=== PATIENT | male | born 1960 | race Caucasian/White ===

== ENCOUNTER 2022-03-10 09:47 | Outpatient (REF) | payer MEDICAID, SELFPAY ==
--- NOTE | ~2022-03-10 | XR_ITS ---
EXAMINATION: XR HAND, RIGHT CLINICAL INFORMATION: Trauma, pain COMPARISON: None TECHNIQUE: Right hand is imaged in 4 views. FINDINGS: There is amputation mid to distal aspect index finger distal phalanx involving the shaft and tuft along with reduction of the overlying soft tissues. Scattered small fragments of bone reside in the distal soft tissues. The base of the distal phalanx and the articular surface appears intact. No periostitis or destructive process. No subluxation or dislocation. The remainder the bony structures are unremarkable. XR/XR hand RT min 3V IMPRESSION: 1. Amputation mid to distal aspect index finger distal phalanx. 2. No dislocation or destructive process.
== END 2022-03-10 09:48 | disposition home or self-care (01) ==
LOC: HO.HOSX 09:47
PROVIDERS: Visit Provider Physician Assistant
DX: S68.110A Complete traumatic metacarpophalangeal amputation of right index finger, initial encounter (principal)
CPT/HCPCS: 73130; 99202

== ENCOUNTER 2022-03-12 06:49 | Day surgery (SDC) | payer OTHER, SELFPAY ==
--- NOTE | 2022-03-11 12:52 | P.CONAN_ITS ---
Documented by User: Merly Motta NP 03/11/22 12:52 HPI - Anesthesia Eval Consult details Narrative: 61yo M for Right Index finger Amputation Revision [facility] Active Problems Active Problems: All Active Problems (Updated 03/10/22 @ 10:52 by Isabella Prater) Traumatic amputation of right index finger (Acute) Past Medical History Medical History High blood pressure High cholesterol Liver problem Social History Social History Patient Tobacco Use Status: Never used Tobacco Are you DNR?: No Advance Directives: No Advance Directives Information Provided: Yes Nutrition Risks: No Nutritional Risk Current occupational status: retired Current occupation: rt hand Meds Allergies Allergy/AdvReac Type Severity Reaction Status Date / Time No Known Allergies Allergy Verified 03/12/22 07:15 [No Known Allergies*] Active Medications: Current Medications Lidocaine HCl 8.11 ml/Epinephrine 0.08 mg/ Sodium Bicarbonate 0.405 meq/ IV Miscellaneous Supplies 9 mls @ 0 mls/hr INFILTRATI ONCE ONE Stop: 03/11/22 10:51 Home Medications Medication Instructions Recorded Confirmed Last Taken Type entecavir 0.5 mg tablet 0.5 mg PO DAILY 03/10/22 Unknown History Exam Exam Date and Time: March 11, 2022 1252 Assessment and Plan Assessment Anesthesia Assessment: Chart Reviewed Documented by User: Ross Avalos MD 03/12/22 08:56 [facility] Past Medical History Medical History High blood pressure High cholesterol Liver problem Family History Family history of problems with anesthesia: No Surgical History History of Problems with Anesthesia: No Social History Social History Patient Tobacco Use Status: Never used Tobacco Are you DNR?: No Advance Directives: No Advance Directives Information Provided: Yes Nutrition Risks: No Nutritional Risk Current occupational status: retired Current occupation: rt hand Meds Allergies Allergy/AdvReac Type Severity Reaction Status Date / Time No Known Allergies Allergy Verified 03/12/22 07:15 [No Known Allergies*] Home Medications Medication Instructions Recorded Confirmed Last Taken Type entecavir 0.5 mg tablet 0.5 mg PO DAILY 03/10/22 Unknown History Exam Airway Mallampati Class: II TM Dist: >3cm Neck ROM: Full Partial: Upper Loose/Missing/Broken Teeth: Yes (poor dentition many teeth missing globally) Heart: rrr+[id number] Lungs: cta b/l Assessment and Plan Assessment Anesthesia Assessment: Anesthesia Plan Discussed Final Anesthetic Review Family History of Problems with Anesthesia: No History of Problems with Anesthesia: No NPO: Yes ASA Class: III Final Preanesthetic Review: No Changes in Pt Med Stat, Meds/Allgs Chart Reviewed, Consent Obtained/Reviewed and Anes Risks/Benef Reviewed Patient Risk: Intermediate Procedure Risk: Intermediate Assessment/Block/Sedation in SS: Assess/Block/Sedation-SS Anesthetic Plan Anesthetic Plan: GA and Agree w/ Assess. and Plan Disposition: Standard PACU
[2022-03-12 07:08] VITALS: BMI 24.5
[2022-03-12] MEDS: Lactated Ringers 1,000 ML 100 ML IVCONT (07:17)
[2022-03-12 07:31] VITALS: BP 163/95; PULSE 61; RESP 18; TEMP 36.4; O2SAT 97
--- NOTE | 2022-03-12 07:57 | PC.NURSE ---
patient understands and speaks frisian fairly well. [employer] machine used for clarification. Dr. Avalos aware and present when spoke to daughter, Ely, over speakerphone that patient stopped Lisinopril on his own and she stated that she will update his pcp.
--- NOTE | 2022-03-12 09:11 | P.HPSUR_ITS ---
Pre-Procedural Eval Section A Date of Service: 03/12/22 The patient is an INPATIENT: No Changes since office visit: No Cold of Flu in the past 2 weeks, No New Medical Problems, No Changes in Medication and No Patient answered all questions The History & Physical has been completed within 30 days and I have reviewed it.: Yes Section B Chief Complaint: Right index finger amputation Allergies: Allergies Allergy/AdvReac Type Severity Reaction Status Date / Time No Known Allergies Allergy Verified 03/12/22 07:15 [No Known Allergies*] Exam Exam Comment: He has a foul odor beneath his bandage. Plan Assessment and plan: 1. Right index finger tip amputation with open fracture I educated the patient and his daughter who acted as a [place] hourly sign language interpreter. I explained that we will evaluate the wound once we get to the OR. If I think he has a significant infection I explained is possible that we may proceed with an I&D today but only closed the wound loosely and plan to come back next week for repeat I and D and possible closure. It looks like he has been on Augmentin since at least Wednesday, and he and his daughter say that he has been taking this medication. I also explained to daughter and patient that he will be going home with oral antibiotics as well. The risks and benefits of operative treatment were discussed with the patient and the patient wishes to proceed with surgery. These risks include, but are not limited to risk of damage to blood vessels, nerves, tendons, infection, recurrence, incomplete relief of preoperative symptoms, persistent pain, possible need for further surgery and the risks associated with regional blocks and anesthesia. The plan is to take the patient to the operating room today for the following procedures: 1. Right index finger revision amputation and I and D of open fracture is indicated 2. [ ] All of the preoperative paperwork including the consent was filled out today. All the patient's questions were answered. The patient understands that they will be contacted by our museum service scheduler soon to schedule this procedure I have reviewed the history and physical and performed a pertinent physical examination on my patient. No changes have occurred unless specified.
--- NOTE | 2022-03-12 09:15 | P.OP_ITS ---
Operative Note Operative Note Date of Service: 03/12/22 Narrative: Operative Note Narrative: Preop diagnosis: 1. Right index finger tip Amputation with open distal phalanx fracture and injury to the nail bed Postop diagnosis: Same Procedure: 1. Right index finger distal phalanx I and D of open fracture and dirty wound 2. Right index finger Excision of germinal and sterile nail matrices Surgeon: Machelle Escalona MD Anesthesia: General Anesthesia Findings: The bandage in wound had a foul odor. There were numerous pieces of grass found imbedded in the wound. No gross purulence. Also the skin from just distal to the PIP joint was white and had the appearance of having been wet for a long period of time. However, this made it difficult to assess for vascularity. The deeper tissues in the wounds were a dark pink color, though there was only very little bleeding even after debridement of the distal phalanx. Implants: None Tourniquet time: 22 minutes EBL: 5.0 ml Specimen: Cultures taken from wound bed and at the bone Drains: None Complications: None Disposition: Brought to the recovery room in stable condition Plan: The patient received a 14 day supply of Augmentin on 03/10/2022. I spoke with his daughter who acted as an sewing machine operator paper bags for her father. I encouraged them to have him continue his oral antibiotics. Check cultures. Return to the operating room in 4 days for repeat I and D, evaluation of the vascularity of the digit, and possible revision amputation if we feel that we can close the wound at that time. Indications: The patient is 61 years old with a right index finger tip amputation an open fracture sustained while using a lawnmower . The risks and benefits of operative treatment, including but not limited to risk of damage to blood vessels, nerves, tendons, infection, recurrence, persistent pain or n umbness, incomplete resolution of preoperative symptoms, or need for further surgery were discussed with the patient and they wished to proceed with surgery. Procedure: Once consent was obtained patient was brought back to the operating suite and placed in the operating table in a supine position. . Perioperative antibiotics and anesthesia was administered by the anesthesia team. A tourniquet was applied to the proximal aspect of the right upper extremity and the limb was prepped and draped in a standard surgical fashion. The limb was elevated exsanguinated with an Esmarch bandage in the tourniquet inflated to 250 mmHg for a total tourniquet time of 22 minutes. The right index finger amputation site was 1st debrided of nonviable tissue. The wound had a foul odor, and numerous pieces of grass found in the wound bed. No gross purulence. The skin distal to the PIP joint was white, and had the appearance of having been wet in the dressing for a long period of time. Cultures were taken from the wound bed down to the bone. There were several bony fragments within the wound as well. The gross debris and bony fragments were removed from the wound. The wound was debrided of devitalized tissue using a 15. Blade and some tenotomy scissors. The end of the bone was debrided using a rongeur or and the curette where necessary. The end of the bone was remove the sharp edges as possible using a small rongeur. The wound was then copiously irrigated with normal saline. Our attention was turned to the nail bed. Because of the severity of this injury it was felt that the nail apparatus to would be best removed. The sterile and germinal matrices were carefully excised using a 15. Blade and then a rongeur. The wound was again copiously irrigated with normal saline. At this point the tourniquet was deflated and hemostasis obtained with a brief period of local pressure.. The wound was copiously irrigated with normal saline. Because of the gross debris within the wound, and the foul odor at the beginning of the case, I felt that it is best to treat this wound with oral antibiotics and a loose closure to facilitate any drainage at this time. Repeat I and D and possibly formal revision of his amputation should wait until next week. The skin edges were loosely reapproximated with two 4-0 Prolene sutures. a digital block was performed using some 0.5% plain ropivacaine for postop pain control and a sterile dressing was applied. The patient appears to have tolerated the procedure well and with no complications. Again the skin distal to the PIP joint was white and had the appearance of skin that had been wet for a prolonged time in its bandage. It did not really pinked up well after the tourniquet was deflated. The vascularity of this aspect of the digit will also be re-evaluated when he is taken to the OR next week.
[2022-03-12 10:32] VITALS: BP 157/87; PULSE 54; RESP 16; TEMP 36.6; O2SAT 98
[2022-03-12 10:37] VITALS: BP 159/92; PULSE 56; RESP 16; O2SAT 98
[2022-03-12 10:42] VITALS: BP 163/95; PULSE 68; RESP 18; O2SAT 98
[2022-03-12 10:47] VITALS: BP 149/86; PULSE 64; RESP 18; O2SAT 95
[2022-03-12 11:02] VITALS: BP 156/79; PULSE 65; RESP 18; TEMP 37; O2SAT 95
== END 2022-03-12 12:10 | disposition home or self-care (01) ==
PROVIDERS: Visit Provider Orthopaedic Surgery
PROC: (CPT 11012; principal; 2022-03-12 09:05)
DX: S62.630B Displaced fracture of distal phalanx of right index finger, initial encounter for open fracture (principal); W28.XXXA Contact with powered lawn mower, initial encounter; Y93.H3 Activity, building and construction; Y92.9 Unspecified place or not applicable; Y99.8 Other external cause status; I10 Essential (primary) hypertension; K76.9 Liver disease, unspecified; E78.5 Hyperlipidemia, unspecified; Z79.899 Other long term (current) drug therapy
CPT/HCPCS: 11012; 11750; 87070; 87073; 87077; 87186; 87205; J0690; J1100; J1170; J2250; J2405; J2795

== ENCOUNTER 2022-03-16 10:27 | Day surgery (SDC) | payer OTHER, SELFPAY ==
--- NOTE | 2022-03-13 09:26 | HO.ANESPROP2 ---
Documented by User: Merly Motta NP 03/13/22 09:27 HPI - Anesthesia Eval Consult details Narrative: 61yo M for Right I&D Index finger,Finger Amputation Revision s/p same 03/12/22 with GA-LMA 5 [facility] Active Problems Active Problems: All Active Problems (Updated 03/10/22 @ 10:52 by Isabella Prater) Traumatic amputation of right index finger (Acute) Past Medical History Medical History High blood pressure High cholesterol Liver problem Family History Family history of problems with anesthesia: No Surgical History History of Problems with Anesthesia: No Social History Social History Patient Tobacco Use Status: Never used Tobacco Current occupational status: retired Current occupation: rt hand Meds Allergies Allergy/AdvReac Type Severity Reaction Status Date / Time No Known Allergies Allergy Verified 03/12/22 07:15 [No Known Allergies*] Home Medications Medication Instructions Recorded Confirmed Last Taken Type entecavir 0.5 mg tablet 0.5 mg PO DAILY 03/10/22 03/12/22 Unknown History Exam Exam Date and Time: March 13, 2022 0926 Assessment and Plan Assessment Anesthesia Assessment: Chart Reviewed Final Anesthetic Review Family History of Problems with Anesthesia: No History of Problems with Anesthesia: No Documented by User: Roosevelt Domínguez MD 03/16/22 17:54 [facility] Past Medical History Medical History High blood pressure High cholesterol Liver problem Social History Social History Patient Tobacco Use Status: Never used Tobacco Current occupational status: retired Current occupation: rt hand Meds Allergies Allergy/AdvReac Type Severity Reaction Status Date / Time No Known Allergies Allergy Verified 03/12/22 07:15 [No Known Allergies*] Home Medications Medication Instructions Recorded Confirmed Last Taken Type entecavir 0.5 mg tablet 0.5 mg PO DAILY 03/10/22 03/12/22 Unknown History Exam Airway Mallampati Class: IV Neck ROM: Full Partial: Upper Loose/Missing/Broken Teeth: Yes (Multiple chipped , poor overall dentition ) Heart: S1,S2 Lungs: b/l breath sounds Assessment and Plan Assessment Anesthesia Assessment: Anesthesia Plan Discussed Final Anesthetic Review NPO: Yes ASA Class: III and Emergency Final Preanesthetic Review: Meds/Allgs Chart Reviewed, Consent Obtained/Reviewed and Anes Risks/Benef Reviewed Patient Risk: Intermediate Procedure Risk: Intermediate Anesthetic Plan Anesthetic Plan: GA Disposition: Standard PACU
[2022-03-16] VITALS (7 sets, daily range): BP systolic 144–179; BP diastolic 85–105; PULSE 57–81; RESP 16–18; TEMP 36.2–36.7; O2SAT 98–100; BMI 26.9
--- NOTE | 2022-03-16 11:26 | MHC.SHP ---
Pre-Procedural Eval Section A Date of Service: 03/16/22 The patient is an INPATIENT: No Changes since office visit: No Cold of Flu in the past 2 weeks, No New Medical Problems, No Changes in Medication and No Patient answered all questions The History & Physical has been completed within 30 days and I have reviewed it.: Yes Section B Chief Complaint: right index finger traumatic amputation Allergies: Allergies Allergy/AdvReac Type Severity Reaction Status Date / Time No Known Allergies Allergy Verified 03/12/22 07:15 [No Known Allergies*] Plan I have reviewed the history and physical and performed a pertinent physical examination on my patient. No changes have occurred unless specified.
--- NOTE | 2022-03-16 11:28 | W.PM.OPN ---
Operative Note Operative Note Date of Service: 03/16/22 Narrative: Operative Note Narrative: Preop diagnosis: 1. Right index finger distal phalanx level Amputation 2. Right index finger open contaminated wound down to distal phalanx bone Postop diagnosis: Same Procedure: 1. right index finger Revision amputation 2. Right index finger I and D of open fracture Surgeon: Machelle Escalona MD Anesthesia: General Anesthesia Findings: Skin condition improved, not wet, good cap refill. Wound with mild odor, no gross purulence Implants: None Tourniquet time: 0 minutes EBL: 5.0 ml Specimen: None Drains: None Complications: None Disposition: Brought to the recovery room in stable condition Plan: Follow-up in 1 week for wound check Check cultures Anticipate suture removal in 3 weeks Continue antibiotics until finished Indications: The patient is 61 years old with a right index finger tip amputation status post I and D 4 days ago. At that time there was gross contamination with grass and significant odor. . The risks and benefits of operative treatment, including but not limited to risk of damage to blood vessels, nerves, tendons, infection, recurrence, persistent pain or numbness, incomplete resolution of preoperative symptoms, or need for further surgery were discussed with the patient and they wished to proceed with surgery. Procedure: Once consent was obtained patient was brought back to the operating suite and placed in the operating table in a supine position. . Perioperative antibiotics and anesthesia was administered by the anesthesia team. A tourniquet was applied to the proximal aspect of the right upper extremity and the limb was prepped and draped in a standard surgical fashion. The tourniquet was not inflated during this case. The skin condition was significantly improved. It was not wet and cap refill was good. There is still a mild odor, but no gross purulence. The amputation site was debrided of nonviable tissue. The end of the bone was debrided using a curette where necessary. The ends of the digital nerves were shortened as indicated. The wound, including the end of the distal phalanx, was then copiously irrigated with normal saline. Hemostasis obtained with a brief period of local pressure.. The wound was copiously irrigated with normal saline. The skin edges were reapproximated with 4-0 Prolene suture. a digital block was performed using some 0.5% plain ropivacaine for postop pain control and a sterile dressing was applied. The patient appears to have tolerated the procedure well and with no complications. All digits were well vascularized conclusion of the case.
== END 2022-03-16 14:29 | disposition home or self-care (01) ==
PROVIDERS: Visit Provider Orthopaedic Surgery
PROC: (CPT 26951; principal; 2022-03-16 10:50)
DX: S68.620A Partial traumatic transphalangeal amputation of right index finger, initial encounter (principal); S62.630B Displaced fracture of distal phalanx of right index finger, initial encounter for open fracture; S61.300A Unspecified open wound of right index finger with damage to nail, initial encounter; W28.XXXA Contact with powered lawn mower, initial encounter; W45.8XXA Other foreign body or object entering through skin, initial encounter; Y93.89 Activity, other specified; Y92.9 Unspecified place or not applicable; Y99.8 Other external cause status; I10 Essential (primary) hypertension
CPT/HCPCS: 26951; 11012; J0690; J2250; J2405; J2795; J3010

== ENCOUNTER 2022-03-24 15:19 | Outpatient (REF) | payer OTHER, SELFPAY ==
--- NOTE | ~2022-03-24 | XR_ITS ---
EXAMINATION: XR HAND, RIGHT CLINICAL INFORMATION: Pain, right hand. COMPARISON: 03/10/2022 TECHNIQUE: PA, lateral, and oblique views of the right hand. FINDINGS: There is more loss of bone involving the distal aspect of the 1st digit. The proximal aspect of the distal phalanx remains intact. Some small bony densities are seen in the soft tissue once again. XR/XR hand RT min 3V IMPRESSION: Increasing loss of bone involving the distal phalanx of the 2nd digit. This could be post surgical. Osteomyelitis cannot be excluded.
== END 2022-03-24 15:20 | disposition home or self-care (01) ==
LOC: HO.HOSX 15:19
PROVIDERS: Visit Provider Orthopaedic Surgery
DX: M79.641 Pain in right hand (principal)
CPT/HCPCS: 73130

== ENCOUNTER → 2022-03-30 14:35 | Outpatient (BNVA) | payer OTHER, SELFPAY | PROVIDERS: Visit Provider Internal Medicine | DX: S68.110A Complete traumatic metacarpophalangeal amputation of right index finger, initial encounter (principal) | CPT/HCPCS: 99202 ==

== ENCOUNTER → 2022-04-29 12:21 | Outpatient (BNVA) | payer OTHER, SELFPAY | PROVIDERS: Visit Provider Orthopaedic Surgery | DX: Z13.89 Encounter for screening for other disorder (principal) ==

== ENCOUNTER 2022-05-08 07:39 | Outpatient (RCR) | payer MEDICAID, SELFPAY ==
--- NOTE | 2022-05-08 09:17 | MHC.OT.DC ---
[address] [phone] F: [phone] Occupational Therapy Discharge Note Provider: Machelle Escalona Diagnosis: Traumatic amputation of right index distal phalanx Date of Surgery: 03/16/22 Date of Evaluation: 05/08/22 Date of Discharge: 05/08/22 Treatments to Date: 1 Cancellations to Date: 0 No Shows to Date: 0 Discharge Status: Achieved Goals Improved Function Independent with HEP Discharge Summary: Pt is a 62 yo male 7 wks S/P right index repeat amputation revision and I+D with complaint of continued pain primarily with deep pressure at the lateral aspect of the digit tip and pressure in the cold Today he presents with ROM, senior radiation therapist and pinch strength ~WNL and bilateral moderately functional dexterity. He reports no difficulty with daily activities. He is retired but busy with housework, heavy yard work and playing his accordion. He has been educated on and practiced desensitization exercises and activities with no difficulty. I anticipate continued improvement with self management . Continued skilled OT is not needed at this time. Electronically Signed By: Zakia Chavez OT CHT CLT Reviewed/agree with student documentation: Therapist: Please Sign and return to therapist, thank you for your referral.
== END 2022-06-25 10:53 | disposition home or self-care (01) ==
LOC: HO.OT 07:39
PROVIDERS: Visit Provider Orthopaedic Surgery
DX: S68.110A Complete traumatic metacarpophalangeal amputation of right index finger, initial encounter (principal)
CPT/HCPCS: 97165; 97530